=== PATIENT | female | born 1955 | race Caucasian/White ===

== ENCOUNTER 2017-04-11 18:23 | Inpatient (IN) | payer OTHER ==
[~2017-04-11] VITALS: Ht 165.1 cm; Wt 112.0 kg
[~2017-04-11 18:23] MED LIST: ACCURETI1 PO; ASPIRIN 81 LOW81 MG PO; ASPIRIN EC81 MG PO; BABY ASPIRIN81 MG OR; CENTRUM OR; CEPHALEXIN500 MG OR; CLOTRIMAZOLE13 TOP; EFFEXOR XR75 MG OR; HYDROCO/APAP1 TA9 PO; KEFLEX500 M1 PO; LIPITOR10 MG PO; LORTAB 5 OR; METHADONE10 MG OR; MORPHINE SUL30 M3 PO; NEURONTIN100 MG PO; NEURONTIN600 MG OR; OXYCOD/APAP1 TA4 PO; OXYCODONE15 MG OR; OXYCONTIN30 MG PO; PERCOCET 5/325M1 TAB OR; PERCOCET1 TA2 OR; PROZAC20 M1 OR; XANAX1 MG OR; [UNRECOGNIZED DRUG - CODE] EX
[2017-04-11 21:42] LABS: HEMATOCRIT 34.9 % (37.0-47.0); HEMOGLOBIN 11.2 g/dl (12.0-16.0); IMMATURE GRANULOCYTES 0.4 % (0.0-1.0); MEAN CELL VOLUME 102.9 fL CALC (80.0-100.0); MEAN CORPUSCULAR HGB CONC 32.1 g/L CALC (32.0-36.0); NEUT# 5.41 thou/uL (2.00-7.15); RED BLOOD COUNT 3.39 mill/uL (4.20-5.60); RED CELL DISTRI WIDTH 14.1 % (11.5-15.5)
[2017-04-11 21:54] LABS: ALBUMIN 3.4 g/dL (3.2-5.0); ALKALINE PHOSPHATASE 87 u/l (38-126); ANION GAP 14 (6-22 (CALC)); BILIRUBIN, TOTAL 0.4 mg/dL (0.0-1.4); BUN 11 mg/dL (7-17); BUN/CREATININE RATIO 12 (12-20 (CALC)); CALCIUM 8.8 mg/dL (8.4-10.2); CARBON DIOXIDE 22 mmol/l (22-30); CHLORIDE 109 mmol/l (95-108); GFR 57 ML/MIN (>=60 (CALC)); GFR FOR AFR.AMER. > 60 ML/MIN (>=60 (CALC)); GLUCOSE 86 mg/dL (65-105); POTASSIUM 3.6 mmol/l (3.5-5.1); SGOT/AST 28 u/l (14-36); SGPT/ALT 28 u/l (9-52); SODIUM 141 mmol/l (137-146); TOTAL PROTEIN 6.9 g/dL (6.3-8.2)
[2017-04-12 01:30] VITALS: BP 136/74
[2017-04-12 07:30] VITALS: BP 106/52
[2017-04-12 08:59] VITALS: BP 114/52
[2017-04-12 10:55] VITALS: BP 104/64
[2017-04-12 15:40] VITALS: BP 121/72
[2017-04-12 17:47] LABS: CHOLESTEROL HDL RATIO 3.6 (<4.4 (CALC))
[2017-04-12 20:09] VITALS: BP 119/81
[2017-04-13 04:15] VITALS: BP 132/75
[2017-04-13 06:00] LABS: HEMATOCRIT 30.6 % (37.0-47.0); HEMOGLOBIN 9.7 g/dl (12.0-16.0); IMMATURE GRANULOCYTES 0.3 % (0.0-1.0); MEAN CELL VOLUME 104.1 fL CALC (80.0-100.0); MEAN CORPUSCULAR HGB CONC 31.7 g/L CALC (32.0-36.0); NEUT# 4.93 thou/uL (2.00-7.15); RED BLOOD COUNT 2.94 mill/uL (4.20-5.60); RED CELL DISTRI WIDTH 13.9 % (11.5-15.5)
[2017-04-13 06:17] LABS: ANION GAP 12 (6-22 (CALC)); BUN 19 mg/dL (7-17); BUN/CREATININE RATIO 18 (12-20 (CALC)); CARBON DIOXIDE 24 mmol/l (22-30); CHLORIDE 110 mmol/l (95-108); GFR 57 ML/MIN (>=60 (CALC)); GFR FOR AFR.AMER. > 60 ML/MIN (>=60 (CALC)); GLUCOSE 83 mg/dL (65-105); POTASSIUM 4.3 mmol/l (3.5-5.1); SODIUM 141 mmol/l (137-146)
[2017-04-13 08:23] VITALS: BP 128/95
[2017-04-13 11:32] VITALS: BP 128/77
[2017-04-13 15:31] VITALS: BP 110/66
[2017-04-13 20:15] VITALS: BP 122/76
[2017-04-14] VITALS (7 sets, daily range): BP systolic 111–161; BP diastolic 49–80
[2017-04-15] VITALS (7 sets, daily range): BP systolic 109–158; BP diastolic 46–91
[2017-04-15 05:29] LABS: CALCIUM 8.9 mg/dL (8.4-10.2); CREATININE 1.2 mg/dL (0.5-1.0); POTASSIUM 4.1 mmol/l (3.5-5.1)
[2017-04-15 05:33] LABS: HEMOGLOBIN 10.4 g/dl (12.0-16.0); IMMATURE GRANULOCYTES 0.2 % (0.0-1.0); MEAN CELL VOLUME 104.6 fL CALC (80.0-100.0); MEAN CORPUSCULAR HGB CONC 32.5 g/L CALC (32.0-36.0); NEUT# 3.2 thou/uL (2.00-7.15); RED BLOOD COUNT 3.06 mill/uL (4.20-5.60); RED CELL DISTRI WIDTH 13.8 % (11.5-15.5)
[2017-04-16 04:39] VITALS: BP 144/88
[2017-04-16 06:05] LABS: HEMATOCRIT 34.3 % (37.0-47.0); IMMATURE GRANULOCYTES 0.4 % (0.0-1.0); MEAN CELL VOLUME 102.4 fL CALC (80.0-100.0); MEAN CORPUSCULAR HGB 32.8 pG CALC (26.0-32.0); MEAN CORPUSCULAR HGB CONC 32.1 g/L CALC (32.0-36.0); NEUT# 5.34 thou/uL (2.00-7.15); RED BLOOD COUNT 3.35 mill/uL (4.20-5.60); RED CELL DISTRI WIDTH 13.7 % (11.5-15.5)
[2017-04-16 06:31] LABS: CALCIUM 9.2 mg/dL (8.4-10.2); CREATININE 1.2 mg/dL (0.5-1.0); POTASSIUM 4.5 mmol/l (3.5-5.1)
[2017-04-16 09:30] VITALS: BP 108/47
[2017-04-16 11:40] VITALS: BP 100/63
[2017-04-16 16:25] VITALS: BP 114/62
[2017-04-16 20:28] VITALS: BP 113/54
[2017-04-17 00:36] VITALS: BP 107/57
[2017-04-17 04:40] VITALS: BP 100/61
[2017-04-17 06:23] LABS: HEMATOCRIT 33.4 % (37.0-47.0); HEMOGLOBIN 10.7 g/dl (12.0-16.0); IMMATURE GRANULOCYTES 0.3 % (0.0-1.0); MEAN CELL VOLUME 103.7 fL CALC (80.0-100.0); MEAN CORPUSCULAR HGB 33.2 pG CALC (26.0-32.0); NEUT# 4.74 thou/uL (2.00-7.15); RED BLOOD COUNT 3.22 mill/uL (4.20-5.60); RED CELL DISTRI WIDTH 13.9 % (11.5-15.5)
[2017-04-17 06:38] LABS: ANION GAP 12 (6-22 (CALC)); BUN 19 mg/dL (7-17); BUN/CREATININE RATIO 17 (12-20 (CALC)); CALCIUM 8.8 mg/dL (8.4-10.2); CARBON DIOXIDE 27 mmol/l (22-30); CHLORIDE 105 mmol/l (95-108); CREATININE 1.1 mg/dL (0.5-1.0); GFR 51 ML/MIN (>=60 (CALC)); GFR FOR AFR.AMER. > 60 ML/MIN (>=60 (CALC)); GLUCOSE 76 mg/dL (65-105); POTASSIUM 4.5 mmol/l (3.5-5.1); SODIUM 140 mmol/l (137-146)
[2017-04-17 08:08] VITALS: BP 98/63
[2017-04-17 11:31] VITALS: BP 106/58
[2017-04-17 16:23] VITALS: BP 108/60
[2017-04-17 19:35] VITALS: BP 139/63
[2017-04-18 00:05] VITALS: BP 120/52
[2017-04-18 04:51] VITALS: BP 117/65
[2017-04-18 05:11] LABS: HEMOGLOBIN 10.2 g/dl (12.0-16.0); IMMATURE GRANULOCYTES 0.4 % (0.0-1.0); MEAN CELL VOLUME 103.9 fL CALC (80.0-100.0); MEAN CORPUSCULAR HGB 33.1 pG CALC (26.0-32.0); MEAN CORPUSCULAR HGB CONC 31.9 g/L CALC (32.0-36.0); NEUT# 5.03 thou/uL (2.00-7.15); RED BLOOD COUNT 3.08 mill/uL (4.20-5.60); RED CELL DISTRI WIDTH 13.8 % (11.5-15.5)
[2017-04-18 05:27] LABS: ANION GAP 12 (6-22 (CALC)); BUN 16 mg/dL (7-17); BUN/CREATININE RATIO 14 (12-20 (CALC)); CALCIUM 8.9 mg/dL (8.4-10.2); CARBON DIOXIDE 27 mmol/l (22-30); CHLORIDE 105 mmol/l (95-108); CREATININE 1.1 mg/dL (0.5-1.0); GFR 51 ML/MIN (>=60 (CALC)); GFR FOR AFR.AMER. > 60 ML/MIN (>=60 (CALC)); GLUCOSE 92 mg/dL (65-105); POTASSIUM 4.2 mmol/l (3.5-5.1); SODIUM 140 mmol/l (137-146)
[2017-04-18 11:42] VITALS: BP 131/77
[2017-04-18 17:19] VITALS: BP 112/70
[2017-04-18 20:05] VITALS: BP 102/60
[2017-04-19 00:34] VITALS: BP 117/56
[2017-04-19 07:50] VITALS: BP 134/84; BP 136/81
[2017-04-19] MEDS ORDERED: FLORASTOR250 M1 PO (11:42)
[2017-04-19] MEDS ORDERED: MORPHINE SUL30 M3 PO (11:42)
[2017-04-19] MEDS ORDERED: DOXYCYCL HYC100 MG PO (11:42)
[2017-04-19] MEDS ORDERED: KEFLEX500 M1 PO (11:42)
[2017-04-19 11:49] VITALS: BP 112/51
[2017-04-19 15:38] VITALS: BP 122/43
== END 2017-04-19 16:15 | DRG 603 ==
LOC: ENPENDDIS → ED 18:23 → ED-I 22:02 → ED 22:10 → ICU 22:11 → MS2 22:11
PROVIDERS: Emergency Medicine; Internal Medicine; Nurse Practitioner Family; ADMIT Internal Medicine; ATTEND Internal Medicine
DX: L03.116 Cellulitis of left lower limb (principal); Z68.41 Body mass index [BMI] 40.0-44.9, adult; L03.115 Cellulitis of right lower limb; E66.01 Morbid (severe) obesity due to excess calories; M19.90 Unspecified osteoarthritis, unspecified site; L40.0 Psoriasis vulgaris; L50.0 Allergic urticaria; T40.2X5A Adverse effect of other opioids, initial encounter; N18.9 Chronic kidney disease, unspecified; D50.9 Iron deficiency anemia, unspecified; G62.9 Polyneuropathy, unspecified; Z59.1 Inadequate housing; F31.9 Bipolar disorder, unspecified; G89.4 Chronic pain syndrome; Z79.891 Long term (current) use of opiate analgesic; Z91.14 Patient's other noncompliance with medication regimen; Z89.422 Acquired absence of other left toe(s); Z87.891 Personal history of nicotine dependence